=== PATIENT | female | born 1990 | race Hispanic/Latino ===

== ENCOUNTER 2022-06-04 15:23 | Emergency (ER) | payer OTHER ==
[~2022-06-04] VITALS: Ht 162.6 cm; Wt 81.0 kg
[~2022-06-04 15:23] MED LIST: AMOXICILLIN500 MG PO; ATIVAN0.5 MG PO; CIPROFLOXACN500 MG PO; FIORICET PO; KEFLEX500 MG PO; KURIC2 % EX; LORTAB 10-325 M1 TAB PO; MEDDOSEPAK PO; METRONIDAZOL500 MG PO; NO CURRENT MEDS; PREDNISONE50 MG PO; PRENATA3 PO; PRILOSEC20 MG PO; PROAIR HFA IN; ULTRAM50 MG OR; ZOFRAN ODT4 MG PO; ZOFRAN ODT8 MG OR; [UNRECOGNIZED DRUG - REMARK]
[2022-06-04 16:01] VITALS: BP 145/80
[2022-06-04 16:20] VITALS: BP 130/80
[2022-06-04 16:45] LABS: BASO% 0.5 % (0-3); EOS% 2.1 % (0-8); HEMATOCRIT 34.9 % (37.0-47.0); HEMOGLOBIN 10.8 g/dl (12.0-16.0); IMMATURE GRANULOCYTES 0.1 % (0.0-5.0); LYMPH% 30.7 % (15-41); MEAN CELL VOLUME 84.7 fL CALC (80.0-100.0); MEAN CORPUSCULAR HGB 26.2 pG CALC (26.0-32.0); MEAN CORPUSCULAR HGB CONC 30.9 g/dL CAL (32.0-36.0); MONO% 6.5 % (2-13); NEUT# 4.62 thou/uL (2.00-7.15); NEUT% 60.1 % (42-76); RED BLOOD COUNT 4.12 mill/uL (4.20-5.60); RED CELL DISTRI WIDTH 13.6 % (11.5-15.5)
[2022-06-04 16:46] VITALS: BP 125/79
[2022-06-04 17:00] VITALS: BP 122/71
[2022-06-04 17:01] LABS: ALBUMIN 4.6 g/dL (3.2-5.0); ALKALINE PHOSPHATASE 94 u/l (38-126); AMYLASE 69 u/l (30-110); ANION GAP 13 (6-22 (CALC)); CARBON DIOXIDE 25 mmol/l (22-30); CHLORIDE 105 mmol/l (95-108); LIPASE 202 u/l (23-300); POTASSIUM 3.7 mmol/l (3.5-5.1); SGOT/AST 22 u/l (14-36); SODIUM 139 mmol/l (137-146); TOTAL PROTEIN 8.9 g/dL (6.3-8.2)
[2022-06-04 17:09] LABS: BILIRUBIN, TOTAL 0.3 mg/dL (0.02-1.3); BUN 16 mg/dL (7-17); BUN/CREATININE RATIO 24 (12-20 (CALC)); CREATININE 0.7 mg/dL (0.5-1.0); GFR FOR AFR.AMER. > 60 ML/MIN (>=60 (CALC)); GFR OTHER RACES > 60 ML/MIN (>=60 (CALC))
[2022-06-04] MEDS ORDERED: ULTRAM50 MG PO (18:52)
[2022-06-04] MEDS ORDERED: PREVACID30 M3 PO (18:52)
[2022-06-04 19:07] VITALS: BP 122/71
== END 2022-06-04 19:10 | disposition home or self-care (01) | DRG 392 ==
LOC: ED 15:23
PROVIDERS: Emergency Medicine
DX: K29.70 Gastritis, unspecified, without bleeding (principal); Z20.822 Contact with and (suspected) exposure to COVID-19
CPT/HCPCS: Q9967